=== PATIENT | female | born 1960 | race African-American/Black ===

== ENCOUNTER 2016-08-31 11:26 | Day surgery (SDC) | payer OTHER ==
[~2016-08-31] VITALS: Ht 175.3 cm; Wt 120.4 kg
[~2016-08-31 11:26] MED LIST: ADVAIR; AMBIEN; FERROUS SULFATE; GABAPENTIN; HYDRALAZINE; LOSARTAN POTASSIUM; MECLIZINE; PEPCID; PROTONIX; RANEXA; TRAM50TA2 PO; TRAMADOL; XOPENEX; ZOFRAN
[2016-08-31 12:57] VITALS: Ht 175.3 cm; Wt 120.4 kg
[2016-08-31] MEDS ORDERED: NEBI5TAB9 PO (13:17)
[2016-08-31] MEDS ORDERED: MECL-77 PO (13:17)
[2016-08-31] MEDS ORDERED: SPIR50TA PO (13:17)
[2016-08-31] MEDS ORDERED: MORPHINE (13:17)
[2016-08-31] MEDS ORDERED: ADV25050 INHALATION (13:17)
[2016-08-31] MEDS ORDERED: CITA10TA72 PO (13:17)
[2016-08-31] MEDS ORDERED: FAMO40TA52 PO (13:17)
[2016-08-31] MEDS ORDERED: RANO10002 PO (13:17)
[2016-08-31] MEDS ORDERED: LEVA15HF6 INH (13:17)
[2016-08-31] MEDS ORDERED: ONDA4SOL2 PO (13:17)
[2016-08-31] MEDS ORDERED: CLOP75TA27 PO (13:17)
[2016-08-31] MEDS ORDERED: GABA300C16 PO (13:17)
[2016-08-31] MEDS ORDERED: OMEP20CA16 PO (13:17)
[2016-08-31] MEDS ORDERED: VALS1TAB15 PO (13:17)
[2016-08-31] MEDS ORDERED: ZOLP5TAB7 PO (13:17)
[2016-08-31] MEDS ORDERED: NIT4 SL (13:17)
[2016-08-31] MEDS ORDERED: SUCR1TAB27 PO (13:17)
[2016-08-31] MEDS ORDERED: PROPOFOL 20 ML ONE (14:52)
[2016-08-31 15:15] VITALS: BP 189/87; PULSE 81; RESP 20
[2016-08-31] MEDS ORDERED: ONDANSETRON 4 MG INJ ONE (16:21)
--- NOTE | 2016-08-31 18:07 | GILP ---
DATE OF PROCEDURE: 08/31/2016 PROCEDURE: Esophagogastroduodenoscopy with biopsies. BRIEF HISTORY AND INDICATIONS: The patient is being evaluated for persistent reflux symptoms despit e aggressive therapy with PPI double dose, Reglan and Carafate. PREMEDICATION: Monitored anesthesia care by anesthesiologist. SURGEON: Kira Malone MD INSTRUMENT USED: Olympus panendoscope. TECHNIQUE: After informed consent, with the patient/relatives understanding the procedure, its indic ations, potential risks and complications, including but not limited to: allergic reaction, bleeding , perforation or infection, and after all pertinent questions were answered to the patients satisfac tion, the patient/relatives signed witnessed informed consent. Following this, premedication was ad ministered slowly IV push under careful cardiovascular and respiratory monitoring with pulse oximetr y, automatic blood pressure and mining and quarrying machinery repairer. Once the sedative effect was achieved the patient was place in the left lateral decubitus, the panendoscope was introduced and advanced under visual contr ol. Careful examination of the upper gastrointestinal tract, both on insertion as well as withdrawal of the instrument disclosed the following findings: ESOPHAGUS: The distal esophagus shows significant erythema, edema and erosions of the mucosa. A small approximately 2 to 3 cm hiatal hernia is present. Biopsies were obtained of the distal esophagus and as well as the mid esophagus to rule out eosinoph ilic esophagitis. STOMACH: Upon entrance to the stomach air was insufflated, the gastric bourne distended normally. T here is erythema and edema of the mucosa. A nodularity is present in the antrum which has superfici al erosion. Biopsies were obtained. PYLORUS: The pylorus appears patent and within normal limits, with no evidence of gastric outlet ob struction. DUODENUM: The duodenal mucosa was carefully examined in the duodenal bulb as well as the second por tion of the duodenum and appears unremarkable with no evidence of duodenitis, ulcer or neoplasm. The instrument was then withdrawn, the patient tolerated the procedure well and was transfer out of the endoscopy suite awake, and in good condition to continue recovery under observation IMPRESSION: 1. Erosive esophagitis, biopsies were obtained. 2. Small 2 cm hiatal hernia. 3. Rule out eosinophilic esophagitis, mid esophagus, biopsies were obtained. 4. Antral gastritis with nodularity and erosion. Biopsies were obtained, rule out Helicobacter pyl kori infection. PLAN: The patient will be continued on PPI b.i.d., Carafate t.i.d., Reglan t.i.d. Given the failur e to respond to aggressive medical therapy and documentation of persistent reflux, the patient anastasiya d be evaluated for Mir fundoplication. Dictated By: KIRA MALONE MS/DAYLIN Conf#: [id number] DID#: [id number]
== END 2016-08-31 17:53 | disposition home or self-care (01) ==
LOC: GIL 11:26
PROVIDERS: ATTEND Internal Medicine Gastroenterology
DX: K20.8 Other esophagitis (principal); K44.9 Diaphragmatic hernia without obstruction or gangrene; K29.60 Other gastritis without bleeding; I10 Essential (primary) hypertension; I25.10 Atherosclerotic heart disease of native coronary artery without angina pectoris; E78.5 Hyperlipidemia, unspecified; Z86.73 Personal history of transient ischemic attack (TIA), and cerebral infarction without residual deficits
CPT/HCPCS: 43239; 88305; 88312; 88313; J2405; Z7610

== ENCOUNTER 2016-11-05 08:49 | Outpatient (CLI) | payer OTHER ==
[~2016-11-05] VITALS: Ht 175.3 cm; Wt 121.3 kg
[~2016-11-05 08:49] MED LIST changes: +ADV25050 INHALATION; -ADVAIR; -AMBIEN; +CITA10TA72 PO; +CLOP75TA27 PO; +FAMO40TA52 PO; -FERROUS SULFATE; +GABA300C16 PO; -GABAPENTIN; -HYDRALAZINE; +LEVA15HF6 INH; -LOSARTAN POTASSIUM; +MECL-77 PO; -MECLIZINE; +MORPHINE; +NEBI5TAB9 PO; +NIT4 SL; +OMEP20CA16 PO; +ONDA4SOL2 PO; -PEPCID; -PROTONIX; -RANEXA; +RANO10002 PO; +SPIR50TA PO; +SUCR1TAB27 PO; -TRAM50TA2 PO; -TRAMADOL; +VALS1TAB15 PO; -XOPENEX; -ZOFRAN; +ZOLP5TAB7 PO
[2016-11-05 09:05] VITALS: BP 185/89; PULSE 85; RESP 18; Ht 175.3 cm; Wt 121.3 kg
--- NOTE | 2016-11-05 10:09 | CONS ---
Date/Time of Note Date/Time of Note DATE: 11/05/16 TIME: 10:09 Assessment/Plan Assessment/Plan Additional Assessment/Plan [facility] INITIAL OUTPATIENT CONSULTATION NOTE DATE OF CONSULTATION: 11/05/2016 PLACE OF SERVICE: [facility] ASSESSMENT AND PLAN: A very-pleasant 56-year-old lady with multiple comorbid issues presenting with esophagitis and reflux disease. Her clinical picture is somewhat complicated and she has multiple comorbidities. For this reason, I recommended that we obtain a second opinion from an esophageal surgeon within an esophageal program, likely in one of our nearby academic settings. She will likely also need full repeat workup including manometry, pH studies, upper GI swallow, and perhaps esophageal impedance plethysmography. Given complexity of the decision-making as well as the patient's existing comorbidities, it would be of utmost importance for the patient to be managed by someone with significant experience in esophageal disease. I explained my rationale behind my recommendations to the patient and her partner and answered all of their questions to the best my ability. Patient and family appear to understand and agreed with the plans. With above assessment, I've recommended the followin. Referral to an esophageal center and a surgeon with significant experience in management of esophageal disease 2. Would likely need repetition of previous workup to assess current situation and to be able to compare to previous workup done in early 1999s (important to obtain old records) Thank you very much for having me involved in the care of this very pleasant patient and wonderful family. If you have any questions, please feel free to contact me at [phone]. Nature of presenting problem: High severity Please note that, given the extensive number of diagnoses or management options , the extensive amount and/or complexity of data needed to be reviewed (over 100 pages of typed old records), and I risk of complications and/or morbidity or mortality, this qualifies as high complexity type of decision-making. Disclaimer: Inadvertent spelling and grammatical errors are likely due to EHR/ dictation software use and do not reflect on the quality of delivered patient care. Also, please note that the electronic time recorded on this node does not necessarily reflect the actual time of the visit. Updated clinical summary: A very-pleasant 56-year-old lady with multiple comorbid issues presenting with esophagitis and reflux disease. Comorbidities: 1. BMI 39.5 2. History of TIAs in the past 3. History of stroke in 2015 without deficits 4. Hypertension 5. Diabetes mellitus, hemoglobin A1c 6.2 6. Hyperlipidemia 7. Family history of strokes 8. Cardiac syndrome X 9. Gastroesophageal reflux disease 10. Asthma 11. Anemia due to fibroids 12. Gastritis with esophagitis with recent EGD, August 31, 2016, H pylori negative. Antral mucosa showing polypoid foveolar hyperplasia and no evidence of malignancy. Distal esophagus showed oxyntic mucosa with minimal plasma cell infiltration. Mid esophagus showed squamous mucosa showing reactive changes. No evidence of malignancy in any of these. 13. Peptic ulcer disease 14. Neuropathy 15. Vertigo 16. Multiple drug allergies 17. Urinary retention 18. Left knee arthroplasty 19. Myomectomy 20. Fibroid uterus (pelvic MRI [facility] 01/26/2015) 21. Clustered cervical cyst without solid component. Differential included cystic endocervical Tunnel cluster, endocervical glandular hyperplasia, or adenoma malignant which is less likely given the lack of solid components. ( pelvic MRI [facility] 01/26/2015) 22. Right vaginal Bartholin's cyst (pelvic MRI [facility] 01/26) 23. Pelvic pain 24. Mild hepatomegaly with fatty infiltration (abdominal ultrasound [facility] 07/05/2016) 25. Small amount of gallbladder sludge but no biliary dilatation (abdominal ultrasound [facility] 07/05/2016) 26. Hyperechoic lesion in the superior cortex of the right kidney, most likely representing an angiomyolipoma measuring 1.5 cm (abdominal ultrasound [facility] 07/05/2016) CONSULTATION REQUESTED BY: Tami Malone MD HISTORY OF PRESENT ILLNESS: The patient is a very pleasant 56-year-old lady with multiple comorbid issues as mentioned above home we were kindly asked consult regarding management of dysphagia. Patient has had symptoms of dysphasia since at least 2004. She has had reportedly undergone several studies including upper endoscopy, manometry and others in the early part of 1999s regarding this issue, but she has never seen a surgeon in the past. Her most recent upper endoscopy showed a 2-3 cm hiatal hernia with likely significant amount of esophagitis and gastritis. Patient describes symptoms of reflux with both solids and liquids. She describes symptoms to be more in her throat region, but she also describes reflux if she sleeps flat or if she bends down. Normally she sleeps with 3 pillows propping her head up. She also has the bed propped up about 6 or 7 inches. Symptoms have been ongoing for more than a decade. No significant alleviating factors. She also has significant issues with her heart. She is not able to go up even one flight of stairs and would have shortness of breath if she attempted to do so. She is able to walk approximately 4 blocks with the help of a cane. Note that she is on Plavix and aspirin given her TIA history diagnosed in 2014. She also has various other pain complaints including pelvic pain, back pain, headaches, etc. No other major complaints during the visit. ALLERGIES: Multiple including nonsteroidal anti-inflammatories, pork, statins ( wheeze and rash), HMG coag reductase inhibitor, aspirin, codeine (palpitations or rash), lisinopril; lidocaine topical (heart palpitations) MEDICATIONS Documented in the electronic records and reviewed by me. Please see the electronic records for details. List of approximately 22 medications in the chart. SOCIAL HISTORY: The patient lives with her partner. Patient has a daughter. Disabled. Walks with a cane.-Tob; occasional ETOH (social);-IVDU FAMILY HISTORY: Hypertension in both mother and father. Mother with history of stroke. Father with diabetes and heart condition in both parents. There are no other significant medical, surgical or oncologic issues in the family as reported by the patient or reflected in the chart. REVIEW OF SYSTEMS: Other than mentioned above, there were no other pertinent positives or pertinent negatives in an otherwise complete 14 point review of systems. PHYSICAL EXAMINATION GENERAL: The patient appears to be a very pleasant -[place] lady of non - descent sitting in a chair, appearing stated age,] and otherwise in no acute distress. BMI: 39.5 VITAL SIGNS: AVSS (please also see auto important data if available as well as the electronic records) HEENT: Normocephalic and atraumatic. Extraocular muscles and hearing are grossly intact bilaterally and symmetrically. Sclerae are nonicteric. Oral cavity is clear; oral mucosa appear to be pink and moist. Dentition: fair. NECK: Supple. There is no lymphadenopathy or JVD. There is no submental, submandibular or supraclavicular lymphadenopathy. CHEST: Rises symmetrically with each breath; patient is breathing comfortably. There are no audible wheezes, rales or rhonchi on the gross exam. HEART: Pulse is regular and palpable on the right wrist. Capillary refill is normal. Carotid pulses are palpable bilaterally and symmetrically in the neck. EXTREMITIES: Lower extremities contain no pitting edema around the ankles bilaterally and symmetrically. ABDOMEN: Abdomen is soft, nontender and nondistended. No evidence of ascites, organomegaly, caput medusae, engorged subcutaneous veins, or other abnormalities. There are no peritoneal signs or guarding. SKIN: Appears to be pink and feels warm to touch. NEUROLOGIC: Awake, alert, and follows commands appropriately. LABORATORY DATA: White blood cell count 8.5, hemoglobin 9.9, platelets 379. Electrolytes normal. Creatinine 0.88, albumin 3.9, alkaline phosphatase 73, AST 18, ALT 12, total bilirubin 0.4. INR 1.0. TSH 1.83. IMAGING: See electronic chart. Please note that I've personally reviewed all pertinent available images and I agree in general with their overall reported findings. Consultation Date/Type/Reason Admit Date/Time Exam/Review of Systems Vital Signs Vitals Vital Signs Date Time Temp Pulse Resp B/P Pulse Ox O2 Delivery O2 Flow Rate FiO2 11/05/16 09:05 98.2 85 18 185/89 100 Room Air PORFIRIO MERINO M.D. Nov 05, 2016 10:09
== END 2016-11-05 17:00 | disposition home or self-care (01) ==
LOC: HPC 08:49
PROVIDERS: ATTEND Transplant Surgery
DX: K21.0 Gastro-esophageal reflux disease with esophagitis (principal); I10 Essential (primary) hypertension; E11.9 Type 2 diabetes mellitus without complications; Z86.73 Personal history of transient ischemic attack (TIA), and cerebral infarction without residual deficits; E78.5 Hyperlipidemia, unspecified; R16.0 Hepatomegaly, not elsewhere classified
CPT/HCPCS: G0463